=== PATIENT | male | born 1970 | race Caucasian/White ===

== ENCOUNTER 2020-05-17 08:27 | Outpatient (REF) | payer SELFPAY | END 2020-05-17 08:28 | disposition home or self-care (01) | LOC: HO.HAP 08:27 | PROVIDERS: PCP Family Medicine; Referring Provider Family Medicine; Visit Provider Family Medicine | DX: Z13.89 Encounter for screening for other disorder (principal) | CPT/HCPCS: 92700 ==

== ENCOUNTER 2020-07-18 15:12 | Outpatient (REF) | payer SELFPAY | END 2020-07-18 15:13 | disposition home or self-care (01) | LOC: HO.HAP 15:12 | PROVIDERS: Visit Provider Family Medicine | DX: Z46.1 Encounter for fitting and adjustment of hearing aid (principal) | CPT/HCPCS: V5299 ==

== ENCOUNTER 2022-03-25 10:46 | Outpatient (REF) | payer SELFPAY ==
--- NOTE | 2022-03-25 12:35 | MHC.AU.HFU ---
Hearing Instrument Follow-Up- Binaural Date of Visit: 03/25/22 Right Ear: Crtt: Phonash MCMAHONEO M50-13T Serial Number: [id number] Repair Warranty: 10/03/2023 Loss and Damage Warranty: 10/03/2023 Battery Size: 13 Maintenance Job Titles: Size 1 M Type of Dome: Small open Type of Mold: Small open dome Type of Wax Guard: Cerushield Dispensed By: [facility] Date of Fittin08/05/2018 Left Ear: Crtt: Phonak Tejeo M50-13T Serial Number: [id number] Repair Warranty: 10/03/2023 Loss and Damage Warranty: 10/03/2023 Battery Size: 13 Maintenance Job Titles: Size 1 M Type of Dome: Small open Type of Mold: Small open dome Type of Wax Guard: Cerushield Dispensed By: [facility] Date of Fittin08/05/2018 Follow-Up Summary: Jung dropped off his right hearing aid, as the flexo folder gluer operator wire had broken off of the hearing aid. Cleaned the hearing aid. Replaced the flexo folder gluer operator, dome, and retention tail. Vacuumed the microphones. Listening check demonstrated that the hearing aid is in good working order. Reordered a flexo folder gluer operator to replace used stock. Recommendations: Hearing instrument maintenance in 6 months, or sooner if needed. Please contact our clinic with any questions or concerns. Diagnosis Code(s): Primary Diagnosis: H90.6 Mixed Hearing Loss, Bilateral Signature: Provider: Aisha Dickson, [facility]
== END 2022-03-25 10:47 | disposition home or self-care (01) ==
LOC: HO.HAP 10:46
PROVIDERS: Visit Provider Family Medicine
DX: Z13.89 Encounter for screening for other disorder (principal)

== ENCOUNTER 2022-03-27 08:28 | Outpatient (REF) | payer SELFPAY | END 2022-03-27 08:29 | disposition home or self-care (01) | LOC: HO.HAP 08:28 | PROVIDERS: Visit Provider Family Medicine | DX: Z13.89 Encounter for screening for other disorder (principal) ==

== ENCOUNTER 2022-03-31 10:15 | Outpatient (REF) | payer SELFPAY ==
--- NOTE | 2022-03-31 12:37 | MHC.AU.HFU ---
Hearing Instrument Follow-Up- Binaural Date of Visit: 03/31/22 Right Ear: Yoli Burnhameo M50-13T SN: [id number] Color: [place] Repair Warranty: 10/03/2023 Loss and Damage Warranty: 10/03/2023 Battery Size: 13 Speech Language Therapist: Size 1 M Type of Mold: Small open dome Type of Wax Guard: Cerushield Dispensed By: [facility] Date of Fittin08/05/2018 Left Ear: Yoli Burnhameo M50-13T SN: [id number] Color: [place] Repair Warranty: 10/03/2023 Loss and Damage Warranty: 10/03/2023 Battery Size: 13 Speech Language Therapist: Size 1 M Type of Mold: Small open dome Type of Wax Guard: Cerushield Dispensed By: [facility] Date of Fittin08/05/2018 Follow-Up Summary: Jung dropped of his left hearing aid, as the rehab assistant wire had broken off of the hearing aid (same place as right one that was dropped off on 03/25/22). Cleaned the hearing aid. Replaced the rehab assistant, dome, and retention tail. Vacuumed the microphones. Listening check demonstrated that the hearing aid is in good working order. Ordered a rehab assistant to replace used stock. Recommendations: Hearing instrument maintenance in 6 months, or sooner if needed. Please contact our clinic with any questions or concerns. Diagnosis Code(s): Primary Diagnosis: H90.6 Mixed Hearing Loss, Bilateral Signature: Provider: Aisha Dickson, [facility]
== END 2022-03-31 10:16 | disposition home or self-care (01) ==
LOC: HO.HAP 10:15
PROVIDERS: Visit Provider Family Medicine
DX: Z13.89 Encounter for screening for other disorder (principal)

== ENCOUNTER 2023-06-04 11:07 | Outpatient (REF) | payer SELFPAY ==
--- NOTE | 2023-06-04 12:03 | MHC.AU.HA3 ---
Hearing Instrument Follow-Up- Binaural Date of Visit: 06/04/23 Right Ear: Make, Model, Color, Serial Number: Yoli De La Torre M50-13T SN: [id number] Color: [place] Gaming Cashier Repair Warranty: 10/03/2023 Gaming Cashier Loss and Damage Warranty: 10/03/2023 [facility] Service Plan: Battery Size: 13 Rubber Moulding Machine Operator/Slim Tube: Size 1 M Earmold/Dome/CShell/SlimTip:Small open dome Type of Wax Guard: Cerushield Dispensed By: [facility] Date of Fittin08/05/2018 Left Ear: Make, Model, Color, Serial Number: Yoli De La Torre M50-13T SN: [id number] Color: [place] Gaming Cashier Repair Warranty: 10/03/2023 Gaming Cashier Loss and Damage Warranty: 10/03/2023 [facility] Service Plan: Battery Size: 13 Rubber Moulding Machine Operator/Slim Tube: Size 1 M Earmold/Dome/CShell/SlimTip: Small open dome Type of Wax Guard: Cerushield Dispensed By: [facility] Date of Fittin08/05/2018 Follow-Up Summary: Phan reports that his right hearing aid is cutting out. Found solution designer clogged and wax guard misaligned. Cleaned and checked both aids, replaced domes, wax guards, and tails. Listening check positive. Phan reports improvement. Recommendations: Recommendations: Hearing instrument follow-up or maintenance as needed. Diagnosis Code(s): Primary Diagnosis: H90.3 Bilateral Sensorineural Hearing Loss Signature: Provider: Aisha Alvarez, [facility]
== END 2023-06-04 11:08 | disposition home or self-care (01) ==
LOC: HO.HAP 11:07
PROVIDERS: Visit Provider Family Medicine
DX: Z46.1 Encounter for fitting and adjustment of hearing aid (principal); H90.3 Sensorineural hearing loss, bilateral
CPT/HCPCS: V5267

== ENCOUNTER 2023-08-02 14:22 | Outpatient (REF) | payer SELFPAY ==
--- NOTE | 2023-08-02 15:33 | MHC.AU.HA3 ---
Hearing Instrument Follow-Up- Binaural Date of Visit: 08/02/23 Right Ear: Sherif, Model, Color, Serial Number: Yoli De La Torre M50-13T SN: [id number] Color: [place] Log Peeler Repair Warranty: 10/03/2023 Log Peeler Loss and Damage Warranty: 10/03/2023 [facility] Service Plan: 10/03/2023 Battery Size: 13 Mold Insert Changer/Slim Tube: Size 1 M Earmold/Dome/CShell/SlimTip:Small open dome Type of Wax Guard: Cerushield Dispensed By: [facility] Date of Fittin08/05/2018 Left Ear: Sherif, Model, Color, Serial Number: Yoli De La Torre M50-13T SN: [id number] Color: [place] Log Peeler Repair Warranty: 10/03/2023 Log Peeler Loss and Damage Warranty: 10/03/2023 [facility] Service Plan: 10/03/2023 Battery Size: 13 Mold Insert Changer/Slim Tube: Size 1 M Earmold/Dome/CShell/SlimTip: Small open dome Type of Wax Guard: Cerushield Dispensed By: [facility] Date of Fittin08/05/2018 Follow-Up Summary: Right aid dropped off with land leases and rentals manager broken. Cleaned and checked aid, replaced land leases and rentals manager. Listening check positive. Recommendations: Recommendations: Hearing instrument follow-up or maintenance as needed. Diagnosis Code(s): Primary Diagnosis: H90.3 Bilateral Sensorineural Hearing Loss Signature: Provider: Aisha Sandoval, CCC-[facility]
== END 2023-08-02 14:23 | disposition home or self-care (01) ==
LOC: HO.HAP 14:22
PROVIDERS: Visit Provider Family Medicine
DX: Z13.89 Encounter for screening for other disorder (principal)

== ENCOUNTER 2023-08-03 12:49 | Outpatient (REF) | payer SELFPAY | END 2023-08-03 12:50 | disposition home or self-care (01) | LOC: HO.HAP 12:49 | PROVIDERS: Visit Provider Family Medicine | DX: Z13.89 Encounter for screening for other disorder (principal) ==

== ENCOUNTER 2024-03-06 10:13 | Outpatient (REF) | payer SELFPAY ==
--- NOTE | 2024-03-06 12:29 | MHC.AU.HA3 ---
Hearing Instrument Follow-Up- Binaural Date of Visit: 03/06/24 Right Ear: Sherif, Model, Color, Serial Number: Yoli De La Torre M50-13T SN: [id number] Color: [place] Circular Ripsaw Operator Repair Warranty: 10/03/2023 Circular Ripsaw Operator Loss and Damage Warranty: 10/03/2023 [facility] Service Plan: 10/03/2023 Battery Size: 13 Wheel Alignment Technician/Slim Tube: Size 1 M Earmold/Dome/CShell/SlimTip:Small open dome Type of Wax Guard: Cerushield Dispensed By: [facility] Date of Fittin08/05/2018 Left Ear: Sherif, Model, Color, Serial Number: Yoli De La Torre M50-13T SN: [id number] Color: [place] Circular Ripsaw Operator Repair Warranty: 10/03/2023 Circular Ripsaw Operator Loss and Damage Warranty: 10/03/2023 [facility] Service Plan: 10/03/2023 Battery Size: 13 Wheel Alignment Technician/Slim Tube: Size 1 M Earmold/Dome/CShell/SlimTip: Small open dome Type of Wax Guard: Cerushield Dispensed By: [facility] Date of Fittin08/05/2018 Follow-Up Summary: Phan came in with his left hearing aid commercial baker helper wire broken. He notes this seems to happen often. Cleaned aids, replaced commercial baker helper left, replaced domes and wax guards. Listening check positive. Reviewed insertion and removal best practices to reduce strain on receivers. Briefly discussed new technology, suggested new eval as this has not been done since 2019. Recommendations: Recommendations: Hearing instrument follow-up or maintenance as needed. Diagnosis Code(s): Primary Diagnosis: H90.3 Bilateral Sensorineural Hearing Loss Signature: Provider: Aisha Sandoval, CCC-A
== END 2024-03-06 10:14 | disposition home or self-care (01) ==
LOC: HO.HAP 10:13
PROVIDERS: Visit Provider Family Medicine
DX: Z46.1 Encounter for fitting and adjustment of hearing aid (principal); H90.3 Sensorineural hearing loss, bilateral
CPT/HCPCS: V5299